=== PATIENT | male | born 1990 | race African-American/Black ===

== ENCOUNTER 2018-06-08 00:30 | Emergency (ER) | payer OTHER, SELFPAY ==
[~2018-06-08] VITALS: Ht 170.2 cm; Wt 90.9 kg
[2018-06-08 00:30] VITALS: BP 141/84
[2018-06-08] MEDS ORDERED: KETOROLAC 60 MG/2 ML VIAL (J1885) IM ONE (02:00)
--- NOTE | 2018-06-08 07:55 | REP ---
Cervical spine three views History: Trauma There is no acute fracture or subluxation. Intervertebral discs are normal in height. Impression: There is no acute fracture or subluxation. Electronically Signed by Dawood Reddy MD 06/08/2018 07:47 A
== END 2018-06-08 02:39 | disposition home or self-care (01) ==
LOC: M ED 00:30
DX: S16.1XXA Strain of muscle, fascia and tendon at neck level, initial encounter (principal); V49.19XA Passenger injured in collision with other motor vehicles in nontraffic accident, initial encounter; Y92.410 Unspecified street and highway as the place of occurrence of the external cause
CPT/HCPCS: 72040; 96372; 99283; J1885